=== PATIENT | female | born 1945 | race American Indian/Alaskan Native ===

== ENCOUNTER 2021-07-01 10:53 | Outpatient (CLI) | payer MEDICARE ==
--- NOTE | 2021-07-01 12:27 | XRay Report ---
Left wrist 3 views INDICATION: Wrist pain FINDINGS: There is moderate degenerative change in the base of the thumb. Carpal bone alignment appea rs normal. Mild soft tissue swelling throughout the wrist. No displaced fracture. Signer Name: Devan Sanon MD Signed: 07/01/2021 12:23 PM Workstation Name: [facility]
== END 2021-07-01 10:54 | disposition home or self-care (01) ==
LOC: XRAY 10:53
PROVIDERS: ATTEND Orthopaedic Surgery
DX: M25.532 Pain in left wrist (principal); M79.89 Other specified soft tissue disorders